=== PATIENT | female | born 1965 | race Caucasian/White ===

== ENCOUNTER 2022-03-09 16:45 | Emergency (ER) | payer OTHER ==
[~2022-03-09] VITALS: Ht 170.2 cm; Wt 87.5 kg
[2022-03-09] MEDS ORDERED: COZAAR25 MG PO (16:56)
[2022-03-09] MEDS ORDERED: JANUMET 50-1,01 EACH PO (16:56)
== END 2022-03-09 22:20 | disposition home or self-care (01) ==
LOC: ER 16:45
DX: I77.6 Arteritis, unspecified (principal); L50.8 Other urticaria; B37.89 Other sites of candidiasis; E11.9 Type 2 diabetes mellitus without complications; Z79.84 Long term (current) use of oral hypoglycemic drugs; I10 Essential (primary) hypertension